=== PATIENT | male | born 1995 | race African-American/Black ===

== ENCOUNTER 2018-01-24 20:20 | Emergency (ER) | payer SELFPAY ==
[2018-01-24] MEDS ORDERED: Ketorolac Tromethamine 60 MG/2 ML VIAL ONE (21:45)
== END 2018-01-24 22:05 | disposition home or self-care (01) ==
LOC: ERS 20:20
DX: S76.111A Strain of right quadriceps muscle, fascia and tendon, initial encounter (principal); X58.XXXA Exposure to other specified factors, initial encounter
CPT/HCPCS: 96372; J1885